=== PATIENT | female | born 1985 | race Caucasian/White ===

== ENCOUNTER 2019-11-18 00:53 | Inpatient (IN) | payer OTHER ==
[2019-11-18 01:34] VITALS: BMI 31.4
--- NOTE | 2019-11-18 01:58 | PDOC ---
History of Present Illness - General Chief Complaint: Pain Stated Complaint: ABD PAIN Time Seen by Provider: 11/18/19 01:57 - History of Present Illness Initial Comments: 11/18/19 01:58 HPI: 34 y/o F with hx of nephrolithiasis and recurrent UTIs presenting with left flank pain [id number] that has been worsening. She states her symptoms were preceded by dysuria and suprapubic discomfort 3weeks ago associated with hematuria and foul urine odor which had all self resolved. However, a week later, the pain returned in a different location. Pain radiates from left flank to LLQ and is intermittent and worse when lying on her left side. She reports taking tylenol and motrin with improvement in pain however pain returns. She also reports some nausea but no emesis. LMP was 5 days ago. She denies fever, chills, BOOKER, chest paiun, SOB, vaginal discharge. PMHx: as noted above ROS: as noted SHx: Denies tobacco use; no alcohol use; no rec drugs Allergies: NKDA ROS: GENERAL/CONSTITUTIONAL: No fever or chills. No weakness. HEAD, EYES, EARS, NOSE AND THROAT: No change in vision. No ear pain or discharge. No sore throat. CARDIOVASCULAR: No chest pain or shortness of breath RESPIRATORY: No cough, wheezing, or hemoptysis. GASTROINTESTINAL: +nausea; no vomiting, diarrhea or constipation. GENITOURINARY: +dysuria, hematuria MUSCULOSKELETAL: No joint or muscle swelling or pain. No neck or back pain. SKIN: No rash NEUROLOGIC: No headache, vertigo, loss of consciousness, or change in strength/sensation. ENDOCRINE: No increased thirst. No abnormal weight change HEMATOLOGIC/LYMPHATIC: No anemia, easy bleeding, or history of blood clots. ALLERGIC/IMMUNOLOGIC: No hives or skin allergy. PE: GENERAL: Awake, alert, and fully oriented, no acute distress HEAD: No signs of trauma, normocephalic, atraumatic EYES: EOMI, sclera anicteric, conjunctiva clear ENT: Auricles normal inspection, hearing grossly normal, nares patent, oroph arynx clear without exudates. Moist mucosa NECK: Normal ROM, no lymphadenopathy LUNGS: No increased work of breathing, symmetrical chest rise, clear to auscultation bilaterally, no wheezes, crackles or rhonchi HEART: Regular rate, regular rhythm, normal S1 and S2, no murmur, peripheral pulses 2+ and equal bilaterally. ABDOMEN: Soft, nondistended, suprapubic and LLQ ttp with LCVAT. +guarding MUSCULOSKELETAL: FROM NEUROLOGICAL: Cranial nerves II through XII grossly intact. Normal speech, stable gait, no focal sensorimotor deficits SKIN: Warm, Dry, normal turgor, no rashes or lesions noted Past History - Medical History Allergies/Adverse Reactions: Allergies Allergy/AdvReac Type Severity Reaction Status Date / Time No Known Allergies Allergy Verified 11/18/19 01:34 Home Medications: Ambulatory Orders NK [No Known Home Medication] 11/18/19 - Reproductive History Is Patient Now?: No - Psycho-Social/Smoking History Smoking History: Never smoked Information on smoking cessation initiated: No - Substance Abuse Hx (Audit-C & DAST Scrn) How often the patient has a drink containing alcohol: Never Score: In Men: 4 or > Positive; In Women: 3 or > Positive: 0 Screen Result (Pos requires Nsg. Audit-10AR): Negative In the last yr the pt used illegal drug/Rx for NonMed reason: No Score: Yes response is considered Positive: 0 Screen Result (Positive result requires Nsg. DAST-10): Negative *Physical Exam - Vital Signs Last Vital Signs Temp Pulse Resp BP Pulse Ox 98.6 F 82 17 135/84 96 11/18/19 01:00 11/18/19 01:00 11/18/19 01:00 11/18/19 01:00 11/18/19 01:00 ED Treatment Course - LABORATORY CBC & Chemistry Diagram: 11/18/19 02:30 11/18/19 02:30 Medical Decision Making - Medical Decision Making 11/18/19 04:38 34 y/o F with hx of nephrolithiasis and recurrent UTIs presenting with left flank pain [id number] that has been worsening following cystitis the week prior. VSS, AF. PE with suprapubic and LLQ ttp with LCVAT. +guarding DDx includes UTI, pyelo, kidney, stone, septic stone -cbc, cmp, urine preg, ua, ucx -ct spiral -ivf, zofran, tylenol 11/18/19 04:41 upreg negative ua significant for uti symptoms completely resolved spiral with 13mm ureterolithiasis on prelim read by ER staff, pending final read will add coags, t&s, ekg in anticipation for urology procedure admitted Discharge - Discharge Information Problems reviewed: Yes Clinical Impression/Diagnosis: UTI (urinary tract infection), Flank pain, Ureterolithiasis Condition: Fair - Follow up/Referral - Patient Discharge Instructions - Post Discharge Activity
--- NOTE | 2019-11-18 02:01 | PDOC ---
Attending Attestation - Resident Resident Name: Laurence Oshea - ED Attending Attestation I have performed the following: I have examined & evaluated the patient, The case was reviewed & discussed with the resident, I agree w/resident's findings & plan - HPI HPI: 11/18/19 03:49 see resident hpi - Physicial Exam PE: 11/18/19 03:49 see resident exam - Medical Decision Making 11/18/19 03:49 34-year-old female with left flank pain and history of ureterolithiasis Urinalysis consistent with urinary tract infection Plan for CT scan to rule out stone Rocephin 1 g IV, IV fluid normal saline Discharge - Discharge Information Problems reviewed: Yes Clinical Impression/Diagnosis: UTI (urinary tract infection), Flank pain Condition: Fair - Follow up/Referral - Patient Discharge Instructions - Post Discharge Activity
[2019-11-18] MEDS ORDERED: ONDANSETRON 4 MG/2 ML VIAL IVPUSH ONE (02:07)
[2019-11-18] MEDS ORDERED: ACETAMINOPHEN 500 MG TABLET (FP) PO ONE (02:07)
[2019-11-18] MEDS ORDERED: SODIUM CHLORIDE 1,000 ML IV STA (02:14)
[2019-11-18] MEDS ORDERED: ACETAMINOPHEN 325 MG TABLET (FP) ONE ×2 (02:31→12:56)
[2019-11-18 02:54] LABS: BASO % 0.7 % (0-2.0); HEMATOCRIT 38.7 % (32.4-45.2); LYMPH % 18.6 % (8-40); MCH 30.6 pg (25.7-33.7); MCHC 33.7 g/dl (32.0-36.0); MEAN CELL VOLUME 90.9 fl (80-96); MEAN PLT VOLUME 9.4 fl (7.5-11.1); MONO % 6.6 % (3.8-10.2); NEUT % 73.1 % (42.8-82.8); PLATELET COUNT 247 K/MM3 (134-434); RBC 4.25 M/mm3 (3.60-5.2); RDW 13.5 % (11.6-15.6); WHITE BLOOD COUNT 12.3 K/mm3 (4.0-10.0)
[2019-11-18 03:15] LABS: ALBUMIN 3.3 g/dl (3.4-5.0); BILIRUBIN,TOTAL 0.3 mg/dL (0.2-1); BLOOD UREA NITROGEN 13.4 mg/dL (7-18); CALCIUM 8.4 mg/dL (8.5-10.1); CREATININE 0.7 mg/dL (0.55-1.3); POTASSIUM 3.7 mmol/L (3.5-5.1); TOT PROT 6.8 g/dl (6.4-8.2)
[2019-11-18 03:16] LABS: HCG,QUALITATIVE URINE Negative
[2019-11-18 03:27] LABS: EPI CELLS 25 /uL (0-25.1); HYALINE CASTS 41 /uL (0-3.1); PH,URINE 5.5 (5.0-8.0); URINE APPEARANCE CLOUDY; URINE BACTERIA >9,000 /uL (0-1359); URINE BILIRUBIN NEGATIVE (NEGATIVE); URINE COLOR ORANGE; URINE GLUCOSE (UA) NEGATIVE (NEGATIVE); URINE KETONE NEGATIVE (NEGATIVE); URINE LEUK ESTERASE 2+ (NEGATIVE); URINE NITRITE POSITIVE (NEGATIVE); URINE PROTEIN 2+ (NEGATIVE); URINE RBC 873 /uL (0-23.9); URINE WBC 937 /uL (0-25.8)
[2019-11-18] MEDS ORDERED: CEFTRIAXONE 1 GM in DEXTROSE 5%-WATER - 100 ML IVPB ONE (03:32)
[2019-11-18] MEDS ORDERED: CEFTRIAXONE 1 GM/50 ML BAG ONE (03:36)
[2019-11-18 04:46] LABS: INR 0.94 (0.83-1.09); PROTHROMBIN TIME (PATIENT) 11.1 SEC (9.7-13.0)
[2019-11-18 04:48] LABS: ACTIVATED PTT 26.9 SECONDS (25.2-36.5)
[2019-11-18] MEDS ORDERED: TAMSULOSIN HCL 0.4 MG CAP PO ONE (05:03)
[2019-11-18] MEDS: SODIUM CHLORIDE 1,000 ML IV SCH (05:25)
[2019-11-18] MEDS ORDERED: CEFTRIAXONE 2 GM-D5W BAG 2 GM/50 ML BAG IVPB ONE (06:00)
--- NOTE | 2019-11-18 06:23 | HP ---
CHIEF COMPLAINT: Left-sided abd pain PCP: HISTORY OF PRESENT ILLNESS: 34F recurring UTI(5x lifetime, last year was most recent), kidney stone(left- side) presented to [facility] w/ complaint of gradually worsened Left sided abd pain radiating to Left back. 8 of 10 in severity. Has had 2weeks of vague left sided abd pain. Has nausea for a few days. Pain similar to previous Apr 2018([place]) kidney stone pain. Back then, had used Flomax for 7d was given a basket but never found a stone. Denies being dehydrated. Drinks 64oz of liquids daily.Thinks urihdtne is more orange-color, and smells strong. Denies burning or suprapubic pressure. Denies fever, chills. 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 Has started menstruation on the , usually lasting 7d ER course was notable for: -afeb, HR 82, BP 135/84 -L-sided CVA tenderness -WBC 12.3(neutrophils 73.1%) -BUN/Cr 13.4/0.7 -UA: protein 2+, blood 3+, nitrite positive, LE 2+, WBC 937, Bact >9000, epith 25 -UCX --pending > CT AP: >10mm stone -NS @1000, zofran 4mg, ceftriaxone 1g, acetaminophen 975mg Recent Travel: denies PAST MEDICAL HISTORY: as above PAST SURGICAL HISTORY: none Social History: Smoking: denies Alcohol: occasional Drugs: denies Allergies No Known Allergies Allergy (Verified 11/18/19 01:34) HOME MEDICATIONS: Home Medications Medication Instructions Recorded NK [No Known Home Medication] 11/18/19 REVIEW OF SYSTEMS CONSTITUTIONAL: Absent: fever, chills, diaphoresis, generalized weakness, malaise, loss of appetite, weight change HEENT: Absent: rhinorrhea, nasal congestion, throat pain, throat swelling, difficulty swallowing, mouth swelling, ear pain, eye pain, visual changes CARDIOVASCULAR: Absent: chest pain, syncope, palpitations, irregular heart rate, lightheadedness, peripheral edema RESPIRATORY: Absent: cough, shortness of breath, dyspnea with exertion, orthopnea, wheezing, stridor, hemoptysis GASTROINTESTINAL: Absent: abdominal pain, abdominal distension, nausea, vomiting, diarrhea, constipation, melena, hematochezia GENITOURINARY: lower abd discomfort, dark urine, Left-sided flank pain Absent: dysuria, frequency, urgency, hesitancy, hematuria, genital pain MUSCULOSKELETAL: Absent: myalgia, arthralgia, joint swelling, back pain, neck pain SKIN: Absent: rash, itching, pallor HEMATOLOGIC/IMMUNOLOGIC: Absent: easy bleeding, easy bruising, lymphadenopathy, frequent infections ENDOCRINE: Absent: unexplained weight gain, unexplained weight loss, heat intolerance, cold intolerance NEUROLOGIC: Absent: headache, focal weakness or paresthesias, dizziness, unsteady gait, seizure, mental status changes, bladder or bowel incontinence PSYCHIATRIC: Absent: anxiety, depression, suicidal or homicidal ideation, hallucinations. PHYSICAL EXAMINATION Vital Signs - 24 hr 11/18/19 11/18/19 01:00 05:49 Temperature 98.6 F Pulse Rate 82 Pulse Rate [ 70 Left Radial] Respiratory 17 18 Rate Blood Pressure 135/84 Blood Pressure 108/58 L [Left Arm] O2 Sat by Pulse 96 98 Oximetry (%) GENERAL: Awake, alert, and fully oriented, in no acute distress. HEAD: Normal with no signs of trauma. EYES: extraocular movements intact, sclera anicteric, conjunctiva clear. EARS, NOSE, THROAT: Ears normal, nares patent, oropharynx clear without exudates. Moist mucous membranes. NECK: Normal range of motion, supple without lymphadenopathy, JVD, or masses. LUNGS: Breath sounds equal, clear to auscultation bilaterally. No wheezes, and no crackles. No accessory muscle use. HEART: Regular rate and rhythm, normal S1 and S2 without murmur, rub or gallop. ABDOMEN: Soft, not distended, positive for suprapubic tendenress. No guarding, no rebound. Mild Left-sided CVA tenderness MUSCULOSKELETAL: Normal range of motion at all joints. No bony deformities or tenderness. UPPER EXTREMITIES: 2+ pulses, warm, well-perfused. No cyanosis. No clubbing. No peripheral edema. LOWER EXTREMITIES: 2+ pulses, warm, well-perfused. No calf tenderness. No peripheral edema. NEUROLOGICAL: Normal speech. Grossly normal upper and lower extremity movement. SKIN: Warm, dry, normal turgor, no rashes or lesions noted, normal capillary refill. Laboratory Results - last 24 hr 11/18/19 11/18/19 11/18/19 02:30 02:30 02:30 WBC 12.3 H RBC 4.25 Hgb 13.0 Hct 38.7 MCV 90.9 MCH 30.6 MCHC 33.7 RDW 13.5 Plt Count 247 MPV 9.4 Absolute Neuts (auto) 9.0 H Neutrophils % 73.1 Lymphocytes % 18.6 Monocytes % 6.6 Eosinophils % 1.0 Basophils % 0.7 Nucleated RBC % 0 PT with INR INR PTT (Actin FS) Sodium 140 Potassium 3.7 Chloride 108 H Carbon Dioxide 26 Anion Gap 6 L BUN 13.4 Creatinine 0.7 Est GFR (CKD-EPI)AfAm 131.02 Est GFR (CKD-EPI)NonAf 113.04 Random Glucose 105 Calcium 8.4 L Total Bilirubin 0.3 AST 11 L ALT 14 Alkaline Phosphatase 87 Total Protein 6.8 Albumin 3.3 L Urine Color [place] Urine Appearance Cloudy Urine pH 5.5 Ur Specific [place] 1.016 Urine Protein 2+ H Urine Glucose (UA) Negative Urine Ketones Negative Urine Blood 3+ H Urine Nitrite Positive H Urine Bilirubin Negative Urine Urobilinogen 1.0 Ur Leukocyte Esterase 2+ H Urine WBC (Auto) 937 Urine RBC (Auto) 873 Urine Casts (Auto) 41 U Epithel Cells (Auto) 25 Urine Bacteria (Auto) >9,000 Urine HCG, Qual Negative 11/18/19 04:23 WBC RBC Hgb Hct MCV MCH MCHC RDW Plt Count MPV Absolute Neuts (auto) Neutrophils % Lymphocytes % Monocytes % Eosinophils % Basophils % Nucleated RBC % PT with INR 11.10 INR 0.94 PTT (Actin FS) 26.9 Sodium Potassium Chloride Carbon Dioxide Anion Gap BUN Creatinine Est GFR (CKD-EPI)AfAm Est GFR (CKD-EPI)NonAf Random Glucose Calcium Total Bilirubin AST ALT Alkaline Phosphatase Total Protein Albumin Urine Color Urine Appearance Urine pH Ur Specific [place] Urine Protein Urine Glucose (UA) Urine Ketones Urine Blood Urine Nitrite Urine Bilirubin Urine Urobilinogen Ur Leukocyte Esterase Urine WBC (Auto) Urine RBC (Auto) Urine Casts (Auto) U Epithel Cells (Auto) Urine Bacteria (Auto) Urine HCG, Qual ASSESSMENT/PLAN: 34F recurring UTI(5x lifetime, last year was most recent), kidney stone(left- side) presented to [facility] w/ complaint of gradually worsened Left sided abd pain radiating to Left back. 8 of 10 in severity. Has had 2weeks of vague left sided abd pain. Has nausea for a few days. Physical exam notable for left-sided CVA tenderness. Labs notable for elevated WBC, contaminated UA(but with lots of bact). Imaging showing a Left-sided 11mm mid ureteral stone w/ mod Left hydronephrosis and perinephric edema. Admitted for obstructive ureteral stone with possible superimposed UTI. #obstructive Left-sided ureteral stone #possible UTI > afeb, HR 82, BP 135/84 > L-sided CVA tenderness > WBC 12.3(neutrophils 73.1%) > BUN/Cr 13.4/0.7 > UA: protein 2+, blood 3+, nitrite positive, LE 2+, WBC 937, Bact >9000, epith 25 > UCX --pending > CT AP: 11mm mid ureteral stone w/ mod Left hydronephrosis and perinephric edema - started tamsulosin - abx regimen: --ceftriaxone --day 1 - pain control: --toradol PRN - Uro Consult(Jamal Chávez): --recs pending FEN - NS @125 - NPO incase of cystocopy DVT PPX - SCDs Family Medical History Family History: As Documented Family Hx Diabetes: Mother Family Hx Renal Disease: Grandmother (maternal) (ESRD) Visit type - Emergency Visit Emergency Visit: Yes ED Registration Date: 11/18/19 Care time: The patient presented to the Emergency Department on the above date and was hospitalized for further evaluation of their emergent condition. - New Patient This patient is new to me today: Yes Date on this admission: 11/18/19 - Critical Care Critical Care patient: No ATTENDING PHYSICIAN STATEMENT I saw and evaluated the patient. I reviewed the resident's note and discussed the case with the resident. I agree with the resident's findings and plan as documented. SUBJECTIVE: OBJECTIVE: ASSESSMENT AND PLAN:
--- NOTE | 2019-11-18 06:53 | PN ---
Teaching Attending Note Name of Resident: Vlad Swenson ATTENDING PHYSICIAN STATEMENT I saw and evaluated the patient. I reviewed the resident's note and discussed the case with the resident. I agree with the resident's findings and plan as documented. SUBJECTIVE: 34 years old F with PMH of kidney stone,, recurrent UTI presented to hospital with Left sided abd pain, gradually worsening from last 2 weeks. On and off 7- 8/10 in intensity associated with nausea. ROS: negative except as above OBJECTIVE: Last Vital Signs Temp Pulse Resp BP Pulse Ox 97.9 F 81 18 128/82 96 11/18/19 06:38 11/18/19 06:38 11/18/19 06:38 11/18/19 06:38 11/18/19 06:38 GENERAL: Awake, alert, and fully oriented, in no acute distress. HEAD: Normal with no signs of trauma. EYES: Pupils equal, round and reactive to light, extraocular movements intact, sclera anicteric, conjunctiva clear. No lid lag. EARS, NOSE, THROAT: Ears normal, nares patent, oropharynx clear without exudates. Moist mucous membranes. NECK: Normal range of motion, supple without lymphadenopathy, JVD, or masses. LUNGS: Breath sounds equal, clear to auscultation bilaterally. No wheezes, and no crackles. No accessory muscle use. HEART: Regular rate and rhythm, normal S1 and S2 without murmur, rub or gallop. ABDOMEN: Soft, suprapubic tenderness, LLQ tenderness not distended, normoactive bowel sounds, no guarding, no rebound, no masses. No hepatomegaly or splenomegaly. MUSCULOSKELETAL: Normal range of motion at all joints. No bony deformities or tenderness. No CVA tenderness. UPPER EXTREMITIES: 2+ pulses, warm, well-perfused. No cyanosis. No clubbing. No peripheral edema. LOWER EXTREMITIES: 2+ pulses, warm, well-perfused. No calf tenderness. No peripheral edema. NEUROLOGICAL: Cranial nerves II-XII intact. Normal speech. Normal gait. PSYCHIATRIC: Cooperative. Good eye contact. Appropriate mood and affect. SKIN: Warm, dry, normal turgor, no rashes or lesions noted, normal capillary refil ASSESSMENT AND PLAN: UTI Nephrolithiasis Admit to floor IV hydration Flomax IV ceftriaxone 2 grams daily Analgesia as needed tylenol urine culture urology eval DVT ppx
[2019-11-18] MEDS ORDERED: KETOROLAC TROMETHAMINE 15 MG/ML VIAL IVPUSH PRN (07:25)
--- NOTE | 2019-11-18 10:16 | EKG ---
Test Reason : Blood Pressure : / mmHG Vent. Rate : 066 BPM Atrial Rate : 066 BPM P-R Int : 146 ms QRS Dur : 084 ms QT Int : 412 ms P-R-T Axes : 027 069 045 degrees QTc Int : 431 ms NORMAL SINUS RHYTHM NORMAL ECG NO PREVIOUS ECGS AVAILABLE Confirmed by MD Naeem, Maat ([id number]) on 11/18/2019 10:15:50 AM Referred By: Confirmed By:Mata Hartley MD
--- NOTE | 2019-11-18 10:36 | CONS ---
DATE OF CONSULTATION: DATE OF DICTATION: 11/18/2019 Patient is a 34-year-old female admitted via the emergency room on November 18, 2019, with left flank pain. She states that she has history of nephrolithiasis. She claims that the pain commenced a day earlier and has increased in severity. It was colicky in nature and 10 in severity. It radiated to the left lower quadrant and groin. She had nausea for the past several days. She had a similar episode in April 2018. She did use Flomax for 7 days and discharged, but never retrieved the stone. She has been drinking 64 ounces of fluid daily. She claims that her urine is orange-appearing and has a bad odor. She denies any fever, chills. 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 In the emergency room her blood pressure was 135/84, pulse 82, white count 12.3, BUN 13.4 and creatinine 0.7. Urine was 3+ blood and nitrite positive. CT of the abdomen revealed a 9 x 13-mm left proximal ureteral stone with proximal hydroureteronephrosis. She denies any past surgical history or travel. She denies any allergies, ethanolism or tobacco. She has not taken any long-term medication. She does have left flank pain, left lower quadrant pain. Her urine is dark. She appears anxious presently. She has a left obstructive uropathy due to a 1-cm stone and an elevated white count with nitrite-positive urine. Will recommend admission and commence on IV antibiotics, fluids and Flomax. Will repeat ultrasound in a.m. to see progress of stone progression. Will follow. Stephie [id number]
[2019-11-18 10:54] LABS: BASO % 0.5 % (0-2.0); EOS % 0.8 % (0-4.5); HEMATOCRIT 37.5 % (32.4-45.2); HEMOGLOBIN 12.7 GM/dL (10.7-15.3); LYMPH % 18.9 % (8-40); MEAN CELL VOLUME 91.2 fl (80-96); MONO % 7.1 % (3.8-10.2); NEUT % 72.7 % (42.8-82.8); PLATELET COUNT 225 K/MM3 (134-434); RBC 4.11 M/mm3 (3.60-5.2); RDW 13.2 % (11.6-15.6)
[2019-11-18 11:15] LABS: BLOOD UREA NITROGEN 10.9 mg/dL (7-18); CALCIUM 8.1 mg/dL (8.5-10.1); CREATININE 0.6 mg/dL (0.55-1.3); MAGNESIUM 1.8 mg/dL (1.8-2.4); PHOSPHOROUS 2.7 mg/dL (2.5-4.9); POTASSIUM 4.2 mmol/L (3.5-5.1)
--- NOTE | 2019-11-18 11:26 | HOSP ---
Subjective - Review of Symptoms Events since last encounter: Seen and examined in ED. Upset that she remains in ED-wants to sign our AMA.Agreed to stay for further treatment. Gastrointestinal: Yes: Nausea, Abdominal Pain Genitourinary: Yes: Dysuria, Other (urinary stones) Physical Examination Vital Signs: Vital Signs Temperature 97.9 F 11/18/19 06:38 Pulse Rate 81 11/18/19 06:38 Respiratory Rate 18 11/18/19 06:38 Blood Pressure 128/82 11/18/19 06:38 O2 Sat by Pulse Oximetry (%) 96 11/18/19 06:38 Constitutional: Yes: Well Nourished, No Distress, Calm Eyes: Yes: WNL, Conjunctiva Clear, EOM Intact HENT: Yes: WNL, Atraumatic, Normocephalic Neck: Yes: WNL, Supple, Trachea Midline Cardiovascular: Yes: WNL, Regular Rate and Rhythm Respiratory: Yes: WNL, Regular, CTA Bilaterally Gastrointestinal: Yes: Soft, Abdomen, Obese, Tenderness (LLQ tenderness), Vomiting Renal/: Yes: Other (suprapubic tenderness) Breast(s): Yes: WNL Musculoskeletal: Yes: WNL Extremities: Yes: WNL Edema: No Peripheral Pulses WNL: Yes Peripheral Pulses: Left Radial: 2+, Right Radial: 2+, Left Doralis Pedis: 2+, Right Dorsalis Pedis: 2+, Left Femoral: 2+, Right Femoral: 2+ Integumentary: Yes: WNL Neurological: Yes: WNL, Alert, Oriented ...Motor Strength: WNL Psychiatric: Yes: WNL Labs: CBC, BMP 11/18/19 10:33 11/18/19 10:33 Hospitalist Encounter Assessment: 34F with recurring UTI being admitted for obstructive ureteral stone with possible superimposed UTI. Full note to follow tomorrow Pending consultation -c/w with IVF -c/w ceftiraxone -c/w flomax -ketoralac prn for pain -maintain NPO for possible urological procedure tmrw -no chemical AC needed-ambulatory -admit to med-surg -full code
[2019-11-18] MEDS: ACETAMINOPHEN 325 MG TABLET (FP) PO PRN (13:05)
[2019-11-19] MEDS: ACETAMINOPHEN 325 MG TABLET (FP) PO PRN ×2 (05:51→22:34)
[2019-11-19] MEDS: SODIUM CHLORIDE 1,000 ML IV SCH (05:55)
[2019-11-19] MEDS ORDERED: CEFTRIAXONE 2 GM-D5W BAG 2 GM/50 ML BAG IVPB ONE (06:00)
[2019-11-19] MEDS ORDERED: CEFTRIAXONE 2 GM in DEXTROSE 5%-WATER 100 ML IVPB ONE (06:45)
[2019-11-19] MEDS ORDERED: TAMSULOSIN HCL 0.4 MG CAP PO SCH (08:30)
--- NOTE | 2019-11-19 09:15 | PN ---
Progress Note, Physician Chief Complaint: Seen and examined sitting up in bed. States pain has imprved. Repeat ultrasound shows no progression of stone. Plan for OR today with Dr Chávez. COVID pending History of Present Illness: 34F with recurring UTI being admitted for obstructive ureteral stone with possible superimposed UTI. - Current Medication List Current Medications: Active Medications Acetaminophen (Tylenol -) 650 mg PO Q4H PRN PRN Reason: PAIN LEVEL 4 - 6 Last Admin: 11/19/19 05:51 Dose: 650 mg Documented by: Sodium Chloride (Normal Saline -) 1,000 mls @ 125 mls/hr IV ASDIR [facility] Last Admin: 11/19/19 05:55 Dose: 125 mls/hr Documented by: Ceftriaxone Sodium (Ceftriaxone 2 Gm-D5w Bag) 2 gm in 50 mls @ 100 mls/hr IVPB DAILY [facility]; Protocol Ketorolac Tromethamine (Toradol Injection -) 15 mg IVPUSH Q6H PRN PRN Reason: PAIN LEVEL 7 - 10 Stop: 11/23/19 07:24 Tamsulosin HCl (Flomax -) 0.4 mg PO DAILY@0830 [facility] Last Admin: 11/19/19 07:59 Dose: Not Given Documented by: - Objective Vital Signs: Vital Signs Temperature 98.4 F 11/19/19 05:45 Pulse Rate 85 11/19/19 05:45 Respiratory Rate 20 11/19/19 05:45 Blood Pressure 113/68 11/19/19 05:45 O2 Sat by Pulse Oximetry (%) 96 11/19/19 05:45 Constitutional: Yes: Well Nourished, No Distress, Calm Eyes: Yes: WNL, Conjunctiva Clear HENT: Yes: WNL, Atraumatic, Normocephalic Neck: Yes: WNL, Supple, Trachea Midline Cardiovascular: Yes: WNL, Regular Rate and Rhythm Respiratory: Yes: WNL, Regular, CTA Bilaterally Gastrointestinal: Yes: Normal Bowel Sounds, Soft, Tenderness ( mild suprapubic/left flank) ...Rectal Exam: Yes: Deferred Genitourinary: Yes: CVA Tenderness - Left Breast(s): Yes: WNL Musculoskeletal: Yes: WNL Extremities: Yes: WNL Edema: No Peripheral Pulses WNL: Yes Peripheral Pulses: Left Radial: 2+, Right Radial: 2+, Left Doralis Pedis: 2+, Right Dorsalis Pedis: 2+, Left Femoral: 2+, Right Femoral: 2+ Integumentary: Yes: WNL Neurological: Yes: WNL, Alert, Oriented ...Motor Strength: WNL Psychiatric: Yes: WNL Labs: CBC, BMP 11/18/19 10:33 11/18/19 10:33 INR, PTT INR 0.94 (0.83-1.09) 11/18/19 04:23 - ....Imaging Ultrasound: Report Reviewed Problem List - Problems (1) Prophylactic measure Assessment/Plan: FEN Fluids: adequate PO intake Electrolytes: monitor & replete as needed Nutrition: NPO DVT moderate risk sq heparin Dispo Maintain as inpatient full code discharge planning Code(s): Z29.9 - ENCOUNTER FOR PROPHYLACTIC MEASURES, UNSPECIFIED (2) UTI (urinary tract infection) Assessment/Plan: UA +, Ucx with NLGNB c/w ceftriaxopne Code(s): N39.0 - URINARY TRACT INFECTION, SITE NOT SPECIFIED (3) Ureterolithiasis Assessment/Plan: plan for OR today Code(s): N20.1 - CALCULUS OF URETER (4) Suspected COVID-19 virus infection Assessment/Plan: COVID Suspicion low On RA strict airborne/droplet precautions until resulted Code(s): Z20.828 - CONTACT W AND EXPOSURE TO OTH VIRAL COMMUNICABLE DISEASES Visit type - Emergency Visit Emergency Visit: Yes ED Registration Date: 11/18/19 Care time: The patient presented to the Emergency Department on the above date and was hospitalized for further evaluation of their emergent condition. - New Patient This patient is new to me today: No - Critical Care Critical Care patient: No - Discharge Referral Referred to [facility] No
[2019-11-19 09:37] LABS: BASO % 0.5 % (0-2.0); HEMATOCRIT 36.1 % (32.4-45.2); LYMPH % 24.2 % (8-40); MCH 30.3 pg (25.7-33.7); MCHC 33.4 g/dl (32.0-36.0); MEAN CELL VOLUME 90.8 fl (80-96); MEAN PLT VOLUME 9.4 fl (7.5-11.1); MONO % 7.4 % (3.8-10.2); NEUT % 66.9 % (42.8-82.8); PLATELET COUNT 231 K/MM3 (134-434); RBC 3.97 M/mm3 (3.60-5.2); RDW 13.3 % (11.6-15.6); WHITE BLOOD COUNT 9.5 K/mm3 (4.0-10.0)
[2019-11-19 09:38] LABS: INR 0.97 (0.83-1.09); PROTHROMBIN TIME (PATIENT) 11.5 SEC (9.7-13.0)
[2019-11-19] MEDS ORDERED: CEFTRIAXONE 2 GM in DEXTROSE 5%-WATER 100 ML IVPB SCH (10:00)
[2019-11-19 10:09] LABS: ALBUMIN 2.9 g/dl (3.4-5.0); BILIRUBIN,TOTAL 0.3 mg/dL (0.2-1); BLOOD UREA NITROGEN 6.8 mg/dL (7-18); CALCIUM 8.2 mg/dL (8.5-10.1); CREATININE 0.6 mg/dL (0.55-1.3); MAGNESIUM 2.1 mg/dL (1.8-2.4); POTASSIUM 4.2 mmol/L (3.5-5.1); TOT PROT 6.5 g/dl (6.4-8.2)
[2019-11-19] MEDS ORDERED: PROMETHAZINE HCL 25 MG/1 ML VIAL IVPUSH PRN ×2 (14:36→15:42)
[2019-11-19] MEDS ORDERED: ONDANSETRON 4 MG/2 ML VIAL IVPUSH PRN ×2 (14:36→15:42)
[2019-11-19] MEDS ORDERED: LACTATED RINGERS SOLUTION 1,000 ML IV SCH ×2 (14:45→15:42)
[2019-11-19] MEDS ORDERED: MIDAZOLAM HCL 2 MG/2 ML SINGLE DOSE VIAL ONE (14:47)
--- NOTE | 2019-11-19 15:34 | OP ---
Operative Note - Note: Operative Date: 11/19/19 Pre-Operative Diagnosis: Left Hydronephrosis, Left Ureteral calculus Operation: Cysto, Retro and stent placement left Findings: Large Rickey with obstruction and hydronephrosis Post-Operative Diagnosis: Same as Pre-op Surgeon: Crista Vale Anesthesia: Spinal Drains & Tubes with Location: Left Ureteral Stent 22 mm 6F Operative Report Dictated: Yes
[2019-11-19] MEDS ORDERED: KETOROLAC TROMETHAMINE 15 MG/ML VIAL IVPUSH PRN (15:42)
[2019-11-19] MEDS ORDERED: SODIUM CHLORIDE 1,000 ML IV SCH (15:42)
[2019-11-19] MEDS ORDERED: DEXTROSE 5%-0.45% SALINE 1,000 ML IV SCH (18:00)
--- NOTE | 2019-11-19 21:25 | OP ---
DATE OF OPERATION: 11/19/2019 SURGEON: Crista Vale MD ANESTHESIA: Spinal. PREOPERATIVE DIAGNOSES: Left renal colic, ureteral calculus, and left hydronephrosis. POSTOPERATIVE DIAGNOSES: Left renal colic, ureteral calculus, and left hydronephrosis. PROCEDURE: Cystoscopy, left retrograde, and stent placement. FINDINGS: Bladder appeared normal. No efflux seen from the left ureteral orifice. Normal efflux seen from the right ureteral orifice. Left retrograde showed evidence of hydronephrosis. DESCRIPTION OF PROCEDURE: Patient, in lithotomy position under anesthesia, was prepped and draped in the usual manner. Using 22 scope, cystoscopy performed and findings were noted above. A guidewire was placed in the left ureteral orifice and advanced and was getting obstructed near the calculus. Then, retrograde catheter was used over the guidewire. Retrograde performed which pushed the calculus up and then the guidewire was advanced into the kidney, confirmed with the x-ray. Then, a 22-mm, 6-Czech stent was placed and confirmed again with x-rays. Instruments withdrawn. Patient tolerated the procedure well, left the operating room under satisfactory condition. CRISTA VALE M.D. [id number]
[2019-11-20] MEDS: ACETAMINOPHEN 325 MG TABLET (FP) PO PRN (05:30)
[2019-11-20] MEDS ORDERED: PT OWN MED DRAWER 7, Y5N ONE (05:51)
[2019-11-20 05:55] VITALS: BP 123/66; PULSE 79; TEMP 99.8
--- NOTE | 2019-11-20 08:23 | DS ---
Physical Exam: SUBJECTIVE: Patient seen and examined OBJECTIVE: Vital Signs Period Temp Pulse Resp BP Sys/Tai Pulse Ox Last 24 Hr 97.7 F-99.8 F 62-89 13-24 97-132/41-79 95-100 PHYSICAL EXAM GENERAL: The patient is awake, alert, and fully oriented, in no acute distress. HEAD: Normal with no signs of trauma. EYES: PERRL, extraocular movements intact, sclera anicteric, conjunctiva clear. ENT: Ears normal, nares patent, oropharynx clear without exudates, moist mucous membranes. NECK: Trachea midline, full range of motion, supple. LUNGS: Breath sounds equal, clear to auscultation bilaterally, no wheezes, no crackles, no accessory muscle use. HEART: Regular rate and rhythm, S1, S2 without murmur, rub or gallop. ABDOMEN: Soft, nontender, nondistended, normoactive bowel sounds, no guarding, no rebound, no hepatosplenomegaly, no masses. EXTREMITIES: 2+ pulses, warm, well-perfused, no edema. NEUROLOGICAL: Cranial nerves II through XII grossly intact. Normal speech, gait not observed. PSYCH: Normal mood, normal affect. SKIN: Warm, dry, normal turgor, no rashes or lesions noted. LABS Laboratory Results - last 24 hr 11/18/19 11/19/19 11/19/19 04:00 07:40 07:40 WBC 9.5 RBC 3.97 Hgb 12.0 Hct 36.1 MCV 90.8 MCH 30.3 MCHC 33.4 RDW 13.3 Plt Count 231 MPV 9.4 Absolute Neuts (auto) 6.4 Neutrophils % 66.9 Lymphocytes % 24.2 D Monocytes % 7.4 Eosinophils % 1.0 Basophils % 0.5 Nucleated RBC % 0 PT with INR 11.50 INR 0.97 Sodium Potassium Chloride Carbon Dioxide Anion Gap BUN Creatinine Est GFR (CKD-EPI)AfAm Est GFR (CKD-EPI)NonAf Random Glucose Calcium Magnesium Total Bilirubin AST ALT Alkaline Phosphatase Total Protein Albumin COVID-19 (MARCIO) Not detected 11/19/19 07:40 WBC RBC Hgb Hct MCV MCH MCHC RDW Plt Count MPV Absolute Neuts (auto) Neutrophils % Lymphocytes % Monocytes % Eosinophils % Basophils % Nucleated RBC % PT with INR INR Sodium 140 Potassium 4.2 Chloride 109 H Carbon Dioxide 26 Anion Gap 5 L BUN 6.8 L Creatinine 0.6 Est GFR (CKD-EPI)AfAm 137.83 Est GFR (CKD-EPI)NonAf 118.92 Random Glucose 102 Calcium 8.2 L Magnesium 2.1 Total Bilirubin 0.3 AST 10 L ALT 10 L Alkaline Phosphatase 78 Total Protein 6.5 Albumin 2.9 L COVID-19 (MARCIO) HOSPITAL COURSE: Date of Admission:11/18/19 Date of Discharge: 11/20/19 Problem List - Problems (1) Prophylactic measure Assessment/Plan: FEN Fluids: adequate PO intake Electrolytes: monitored & repleted Nutrition: regular DVT moderate risk sq heparin Dispo Maintain as inpatient full code discharge planning to home-prescriptions were transmitted to [facility] and pt left before they were delivered. Left voice mail streesing imprtance to complete abx course Code(s): Z29.9 - ENCOUNTER FOR PROPHYLACTIC MEASURES, UNSPECIFIED (2) UTI (urinary tract infection) Assessment/Plan: UA +, Ucx with NLGNB c/w cephalaxin x 7 days Code(s): N39.0 - URINARY TRACT INFECTION, SITE NOT SPECIFIED (3) Ureterolithiasis Assessment/Plan: cysto, Retro and stent placement left Code(s): N20.1 - CALCULUS OF URETER (4) Suspected COVID-19 virus infection Assessment/Plan: negative pcr Code(s): Z20.828 - CONTACT W AND EXPOSURE TO OTH VIRAL COMMUNICABLE DISEASES Medically stable for discharge to home however pt left prior to obtaining abx Minutes to complete discharge: 35 Discharge Summary Problems reviewed: Yes Reason For Visit: URINARY TRACT INFECTION, CALCULUS OF URETER Current Active Problems Flank pain (Acute) Prophylactic measure (Acute) Suspected COVID-19 virus infection (Acute) UTI (urinary tract infection) (Acute) Ureterolithiasis (Acute) Condition: Improved - Instructions Diet, Activity, Other Instructions: DISCHARGE YOUR VISIT You came to the hospital because had an obstructing kidney stone. The stone was surgically removed. You also had a urinary tract infection which you will take antibiotics for 1 additional weeks. MEDICATIONS Please continue to take your home medications as prescribed. There was no changes NEW FLOMAX .04MG DAILY CEPHALEXIN 500MG TWICE A DAY DIET Continue your home diet ADDITIONAL CARE Please make an appointment to see your primary care provider, 2 weeks from today. ADDITIONAL INFORMATION Please call 911 or come directly to the emergency department if you experience unusual headache, vision change, shortness of breath, chest pain, numbness, tingling, loss of alertness/awareness, loss of function, unusual bleeding or any alarming symptoms. Thank you for allowing me to care for you. Fredi Xiong, [facility], [facility] [phone] Referrals: Crista Vale MD [Staff Physician] - Summer Chávez MD [Staff Physician] - Disposition: HOME - Home Medications Comprehensive Discharge Medication List: Ambulatory Orders Acetaminophen [Tylenol .Regular Strength -] 650 mg PO Q4H PRN tablet 11/20/19 Cephalexin [Keflex] 500 mg PO BID #14 capsule 11/20/19 Tamsulosin HCl [Flomax -] 0.4 mg PO DAILY@0830 #30 cap 11/20/19 Problem List - Problems (1) Prophylactic measure Code(s): Z29.9 - ENCOUNTER FOR PROPHYLACTIC MEASURES, UNSPECIFIED (2) UTI (urinary tract infection) Code(s): N39.0 - URINARY TRACT INFECTION, SITE NOT SPECIFIED (3) Ureterolithiasis Code(s): N20.1 - CALCULUS OF URETER (4) Suspected COVID-19 virus infection Code(s): Z20.828 - CONTACT W AND EXPOSURE TO OTH VIRAL COMMUNICABLE DISEASES This patient is new to me today: Yes Date on this admission: 11/20/19 Emergency Visit: No Critical Care patient: No - Discharge Referral Referred to [facility] Med P.C.: No
[2019-11-20] MEDS ORDERED: TAMSULOSIN HCL 0.4 MG CAP PO SCH (08:30)
[2019-11-20 08:56] LABS: BASO % 0.5 % (0-2.0); EOS % 1.2 % (0-4.5); HEMATOCRIT 37.8 % (32.4-45.2); HEMOGLOBIN 12.9 GM/dL (10.7-15.3); LYMPH % 23.7 % (8-40); MCH 30.8 pg (25.7-33.7); MCHC 34.2 g/dl (32.0-36.0); MEAN CELL VOLUME 90.3 fl (80-96); MEAN PLT VOLUME 9.2 fl (7.5-11.1); MONO % 6.9 % (3.8-10.2); NEUT % 67.7 % (42.8-82.8); PLATELET COUNT 248 K/MM3 (134-434); RBC 4.19 M/mm3 (3.60-5.2); RDW 13.3 % (11.6-15.6); WHITE BLOOD COUNT 9.6 K/mm3 (4.0-10.0)
[2019-11-20 09:23] LABS: ALBUMIN 3.1 g/dl (3.4-5.0); BILIRUBIN,TOTAL 0.4 mg/dL (0.2-1); BLOOD UREA NITROGEN 10.4 mg/dL (7-18); CALCIUM 8.4 mg/dL (8.5-10.1); CREATININE 0.6 mg/dL (0.55-1.3); MAGNESIUM 2.1 mg/dL (1.8-2.4); TOT PROT 6.6 g/dl (6.4-8.2)
[2019-11-20] MEDS ORDERED: CEFTRIAXONE 2 GM in DEXTROSE 5%-WATER 100 ML IVPB SCH (10:00)
--- NOTE | 2019-11-20 11:56 | PN ---
HC Provider Note Provider Note: Anesthesia Post Op Note Pt discharged prior to visit as per chart pt doing well. VSS stable no apparent anesthesia complications. Juan Pablo Ko.
== END 2019-11-20 08:00 | disposition home or self-care (01) | DRG 661 ==
LOC: JER 00:53 → JERBED 04:16 → J6WEST-2 17:21 → J6S 11-19 18:15
PROVIDERS: ADMIT Internal Medicine; ATTEND Nurse Practitioner Acute Care
PROC: 0T778DZ Dilation of Left Ureter with Intraluminal Device, Via Natural or Artificial Opening Endoscopic (ICD-10-PCS; principal; 2019-11-19 14:30)
PROC: BT1FZZZ Fluoroscopy of Left Kidney, Ureter and Bladder (ICD-10-PCS; 2019-11-19 14:30)
DX: N13.6 Pyonephrosis (principal); R10.32 Left lower quadrant pain
CPT/HCPCS: 36415; 74176-TC; 76000-TC-FY; 76775-TC; 80048; 80053; 81003; 83735; 84100; 84703; 85025; 85610; 85730; 86850; 86900; 86901; 87086; 87186; 93005; 93010; 94760; 99285-25; U0003

== ENCOUNTER 2019-11-25 16:49 | Emergency (ER) | payer OTHER ==
[2019-11-25 16:55] VITALS: BP 155/71; PULSE 96; TEMP 98; BMI 31.4
--- NOTE | 2019-11-25 16:55 | PDOC ---
Rapid Medical Evaluation Time Seen by Provider: 11/25/19 16:54 Medical Evaluation: Allergies Allergy/AdvReac Type Severity Reaction Status Date / Time No Known Allergies Allergy Verified 11/25/19 16:53 11/25/19 16:54 CC: lac to right inner lower quad sustained from scissors that were in her bed, no med hx, unknown last tdap Exam: 4 cm superficial lac to rle Plan: lac repair Discharge Disposition - Diagnosis Laceration of leg - Referrals - Patient Instructions - Post Discharge Activity
[2019-11-25] MEDS ORDERED: DIPHTH,PERTUSS(ACELL),TET 0.5 ML DISP.SYRIN IM ONE ×2 (16:56→17:37)
--- NOTE | 2019-11-25 17:32 | PDOC ---
History of Present Illness - General Chief Complaint: Laceration Stated Complaint: KNEE INJURY Time Seen by Provider: 11/25/19 16:54 History Source: Patient Exam Limitations: Clinical Condition - History of Present Illness Initial Comments: 11/25/19 17:27 Patient with no significant past medical history presented with laceration to medial aspect of right knee status post accidentally cutting herself on scissor while walking around her bed an hour ago. Patient reported scissors was taken out on the edge of the bed and she accidentally cut herself. Patient does not recall last tetanus Vaccine. Denies any other symptoms Timing/Duration: reports: just prior to arrival Past History - Medical History Allergies/Adverse Reactions: Allergies Allergy/AdvReac Type Severity Reaction Status Date / Time No Known Allergies Allergy Verified 11/25/19 16:53 Home Medications: Ambulatory Orders Acetaminophen [Tylenol .Regular Strength -] 650 mg PO Q4H PRN tablet 11/20/19 Tamsulosin HCl [Flomax -] 0.4 mg PO DAILY@0830 #30 cap 11/20/19 Cephalexin [Keflex] 500 mg PO BID #14 capsule 11/25/19 Anemia: No Asthma: No Cancer: No Cardiac Disorders: No CVA: No COPD: No Diabetes: No Disorders: No HTN: No Kidney Stones: Yes Seizures: No - Surgical History Abdominal Surgery: No Cardiac Surgery: No Cholecystectomy: No - Reproductive History Is Patient Now?: No - Immunization History Immunization Up to Date: No - Psycho-Social/Smoking History Smoking History: Never smoked - Substance Abuse Hx (Audit-C & DAST Scrn) How often the patient has a drink containing alcohol: Never Score: In Men: 4 or > Positive; In Women: 3 or > Positive: 0 Screen Result (Pos requires Nsg. Audit-10AR): Negative In the last yr the pt used illegal drug/Rx for NonMed reason: No Score: Yes response is considered Positive: 0 Screen Result (Positive result requires Nsg. DAST-10): Negative Review of Systems - Review of Systems Able to Perform ROS?: Yes Is the patient limited Maori proficient: No Constitutional: No: Chills, Fever HEENTM: No: Symptoms Reported, See HPI, Eye Pain, Blurred Vision, Tearing, Recent change in vision, Double Vision, Cataracts, Ear Pain, Ocular Prothesis, Ear Discharge, Nose Pain, Nose Congestion, Tinnitus, Nose Bleeding, Hearing Loss, Throat Pain, Throat Swelling, Mouth Pain, Dental Problems, Difficulty Swallowing, Mouth Swelling, Other Respiratory: No: Symptoms reported, See HPI, Cough, Orthopnea, Shortness of Breath, SOB with Exertion, SOB at Rest, Stridor, Wheezing, Productive cough, Hemoptysis, Other Cardiac (ROS): No: Symptoms Reported Musculoskeletal: Yes: Symptoms Reported, See HPI, Muscle Pain (pain to medial of right knee) Integumentary: Yes: Symptoms Reported, See HPI, Other (laceration to right knee) Neurological: No: Numbness, Paresthesia, Tingling All Other Systems: Reviewed and Negative *Physical Exam - Vital Signs Last Vital Signs Temp Pulse Resp BP Pulse Ox 98.0 F 96 H 18 155/71 100 11/25/19 16:53 11/25/19 16:53 11/25/19 16:53 11/25/19 16:53 11/25/19 16:53 - Physical Exam 11/25/19 17:32 GENERAL: Well developed, well nourished. Awake and alert. No acute distress. PULMONARY: No evidence of respiratory distress. MUSCULOSKELETAL : mild tenderness over medial aspect of right knee over 2 cm laceration to medial aspect of right knee. No bony deformities SKIN: Warm and dry. Normal capillary refill. 2 cm superficial linear vertical lacerat ion to medial aspect of right knee with no active bleeding. Full range of motion of knee. No tender to rest of knee except over laceration area. Normal sensory to right knee. NEUROLOGICAL: Alert, awake, appropriate. No motor deficits in the lower extremities. Gait is normal without ataxia. PSYCHIATRIC: Cooperative. Good eye contact. Appropriate mood and affect. General Appearance: Yes: Nourished, Appropriately Dressed. No: Apparent Distress Procedures - Laceration/Wound Repair Right Medial Knee Wound Length: to 2.5 cm Wound Explored: clean Wound's Depth, Shape: superficial, linear Irrigated w/ Saline: Yes Betadine Prep: Yes Anesthesia: 1% Lidocaine Amount of Anesthetic (ccs): 2 Wound Repaired With: Sutures Suture Size/Type: 4:0, nylon Number of Sutures: 3 Layer Closure: No Sterile Dressing Applied: Yes Splint Applied: No Sling Applied: No Progress: 11/25/19 17:50 Wound cleaned with Betadine and normal saline. Wound infiltrated with 2 cc 1% lidocaine and wound closed with 3 interrupted 4 nylon sutures with close approximation. Bacitracin applied to wound and wound covered adhesive bandage. Tetanus vaccine given. Patient tolerated procedure well. Medical Decision Making - Medical Decision Making 11/25/19 17:29 Patient with no significant past medical history presented with laceration to medial aspect of right knee status post accidentally cutting herself on scissor while walking around her bed an hour ago. Patient reported scissors was taken out on the edge of the bed and she accidentally cut herself. Patient does not recall last tetanus Vaccine. Denies any other symptoms Exam significant for 2 cm superficial linear vertical laceration to medial aspect of right knee with no active bleeding. Full range of motion of knee. No tender to rest of knee except over laceration area. Normal sensory to right knee. Wound cleaned with Betadine and normal saline. Wound infiltrated with 2 cc 1% lidocaine and wound closed with 3 interrupted 4 nylon sutures with close approximation. Bacitracin applied to wound and wound covered adhesive bandage. Tetanus vaccine given. Patient tolerated procedure well. Patient stable for discharge on Keflex antibiotic for infection prophylaxis with continues home wound care and follow-up in 1 week for suture removal Discharge - Discharge Information Problems reviewed: Yes Clinical Impression/Diagnosis: Laceration of leg Qualifiers: Encounter type: initial encounter Laterality: right Qualified Code(s): S81.811A - Laceration without foreign body, right lower leg, initial encounter Condition: Stable Disposition: HOME - Admission No - Additional Discharge Information Prescriptions: Cephalexin [Keflex] 500 mg PO BID #14 capsule - Follow up/Referral Referrals: ON STAFF,NOT [Primary Care Provider] - - Patient Discharge Instructions Patient Printed Discharge Instructions: DI for Laceration Repair Additional Instructions: Keep wound clean and dry for the next 24 hours. Apply bacitracin to wound twice a day. Take prescribed antibiotics and finish it. take Motrin as needed for pain. Follow-up in 1 week for suture removal - Post Discharge Activity
== END 2019-11-25 17:47 | disposition home or self-care (01) ==
LOC: JERFT 16:49
PROC: 0HQKXZZ Repair Right Lower Leg Skin, External Approach (ICD-10-PCS; principal; 2019-11-25)
PROC: 3E0234Z Introduction of Serum, Toxoid and Vaccine into Muscle, Percutaneous Approach (ICD-10-PCS; 2019-11-25)
DX: S81.811A Laceration without foreign body, right lower leg, initial encounter (principal)
CPT/HCPCS: 90715; 99284-25

== ENCOUNTER 2019-12-03 16:22 | Emergency (ER) | payer OTHER ==
[2019-12-03 16:27] VITALS: BP 130/65; PULSE 75; TEMP 97.1; BMI 31.4
--- NOTE | 2019-12-03 16:39 | PDOC ---
History of Present Illness - General Chief Complaint: Suture/Staple Removal(Here) Stated Complaint: suture removal Time Seen by Provider: 12/03/19 16:24 History Source: Patient Exam Limitations: No Limitations - History of Present Illness Initial Comments: 12/03/19 16:35 Pt is a 34 y/o female who presents to the ED for suture removal of the R thigh. She had 3 sutures placed 1 week ago. She denies any sutures coming out on their own, no drainage, no pain. Past History - Medical History Allergies/Adverse Reactions: Allergies Allergy/AdvReac Type Severity Reaction Status Date / Time No Known Allergies Allergy Verified 12/03/19 16:27 Home Medications: Ambulatory Orders Acetaminophen [Tylenol .Regular Strength -] 650 mg PO Q4H PRN tablet 11/20/19 Tamsulosin HCl [Flomax -] 0.4 mg PO DAILY@0830 #30 cap 11/20/19 Cephalexin [Keflex] 500 mg PO BID #14 capsule 11/25/19 Anemia: No Asthma: No Cancer: No Cardiac Disorders: No CVA: No COPD: No Diabetes: No Disorders: No HTN: No Kidney Stones: Yes Seizures: No - Surgical History Abdominal Surgery: No Cardiac Surgery: No Cholecystectomy: No - Reproductive History Is Patient Now?: No - Immunization History Immunization Up to Date: No - Psycho-Social/Smoking History Smoking History: Never smoked - Substance Abuse Hx (Audit-C & DAST Scrn) How often the patient has a drink containing alcohol: Monthly or less Number of drinks the patient has on a typical day: 1 or 2 Score: In Men: 4 or > Positive; In Women: 3 or > Positive: 1 Screen Result (Pos requires Nsg. Audit-10AR): Negative In the last yr the pt used illegal drug/Rx for NonMed reason: No Score: Yes response is considered Positive: 0 Screen Result (Positive result requires Nsg. DAST-10): Negative Review of Systems - Review of Systems Comments:: 12/03/19 16:36 - Review of Systems Able to Perform ROS?: Yes Constitutional: No: Fever, Chills, Loss of Appetite, Night Sweats, Weakness HEENTM: No: Eye Pain, Vision changes, Ear Pain, Throat Pain, Throat Swelling, Mouth Pain, Difficulty Swallowing Respiratory: No: Cough, Shortness of Breath, Wheezing, Sputum Production Cardiac (ROS): No: Chest Pain, Chest Tightness, Palpitations, Irregular Heart Beat, Edema ABD/GI: No: Nausea, Vomiting, Abdominal Pain, Diarrhea : No Dysuria, No Hematuria, No Frequency, No Urgency Musculoskeletal: No: Muscle Pain, Back Pain, Joint Pain, Muscle Weakness, Neck Pain Integumentary: No: Lesions, Rash; Positive: R thigh suture removal Neurological: No: Headache, Numbness, Tingling, Weakness, Speech Difficulties *Physical Exam - Vital Signs Last Vital Signs Temp Pulse Resp BP Pulse Ox 97.1 F L 75 16 130/65 100 12/03/19 16:25 12/03/19 16:25 12/03/19 16:25 12/03/19 16:25 12/03/19 16:25 - Physical Exam 12/03/19 16:37 - Physical Exam General Appearance: Nourished, Appropriately Dressed, No Distress Neck: Supple, No Lymphadenopathy (R), No Lymphadenopathy (L), No Rigidity, No Decreased range of motion Respiratory/Chest: Lungs Clear, Normal Breath Sounds. No Respiratory Distress, No Accessory Muscle Use Cardiovascular: Regular Rhythm, Regular Rate, S1, S2 Musculoskeletal: Normal Inspection. No Decreased Range of Motion Extremity: Normal Capillary Refill, Normal Inspection Integumentary: Normal Color, Dry. No Rash; R thigh laceration with [address] 3 sutures removed with good healing. No sign of drainage. No sign of infection. No tenderness to palpation. steri-strips placed. Neurologic: scientific aide II-XII NML intact, Fully Oriented, Alert, Normal Mood/Affect, Normal Response Medical Decision Making - Medical Decision Making 12/03/19 16:38 Assessment: 34 y/o female presents for suture removal of the R thigh. Plan: -3 sutures removed in the ED, steri strips placed -Wound care instructions given Discharge - Discharge Information Problems reviewed: Yes Clinical Impression/Diagnosis: Visit for suture removal Condition: Stable Disposition: HOME - Follow up/Referral - Patient Discharge Instructions Patient Printed Discharge Instructions: DI for Suture Removal Additional Instructions: Keep wound clean and dry. Keep covered while away from home until healed. Keep uncovered while at home resting. - Post Discharge Activity
== END 2019-12-03 16:40 | disposition home or self-care (01) ==
LOC: JERFT 16:22
DX: Z48.02 Encounter for removal of sutures (principal)
CPT/HCPCS: 99281-25